=== PATIENT | female | born 1995 | race Caucasian/White ===

== ENCOUNTER 2020-12-23 18:10 | Emergency (ER) | payer OTHER ==
[~2020-12-23] VITALS: Ht 162.6 cm; Wt 107.0 kg
[2020-12-23] MEDS ORDERED: KETOROLAC 60MG/2ML VIAL IM ONE (19:15)
[2020-12-23] MEDS ORDERED: ACET-2708 MT (19:16)
[2020-12-23] MEDS ORDERED: CYCL25PO15 MT (19:16)
[2020-12-23 19:22] VITALS: BP 149/78
== END 2020-12-23 19:29 | disposition home or self-care (01) ==
LOC: ER 18:10
DX: M54.59 Other low back pain (principal)
CPT/HCPCS: 96372; 99283; J1885

== ENCOUNTER 2023-11-14 04:04 | Emergency (ER) | payer MEDICAID, OTHER ==
[~2023-11-14] VITALS: Ht 162.6 cm; Wt 140.0 kg
[~2023-11-14 04:04] MED LIST: ACET-2708 MT; CYCL25PO15 MT
[2023-11-14 04:08] VITALS: O2SAT 95
[2023-11-14] MEDS ORDERED: KETOROLAC 30MG/ML VIAL IM ONE (04:45)
[2023-11-14] MEDS ORDERED: KETOROLAC 30MG/ML VIAL IM NR (05:00)
[2023-11-14 06:12] LABS: BASOPHILS % 0.2 % (0.0-2.0); EOSINOPHILS % 0.1 % (0.0-5.0); HEMATOCRIT. 36.6 % (36.0-48.0); HEMOGLOBIN. 11.9 g/dL (12.0-16.0); LYMPHOCYTES % 12.3 % (20.0-50.0); MEAN CORPUSCULAR HEMOGLOBIN 26.6 pg (28.0-32.0); MEAN CORPUSCULAR HGB CONC 32.6 g/dL (31.0-37.0); MEAN CORPUSCULAR VOLUME 81.4 fL (81.0-99.0); MEAN PLATELET VOLUME 7.7 fl (7.4-10.4); NEUTROPHILS % 84.4 % (40.0-76.0); PLATELET 329 x1000/uL (130-400); RED BLOOD CELL COUNT 4.49 mill/uL (4.2-5.4); RED CELL DISTRIBUTION WIDTH 15.2 % (11.6-14.6)
[2023-11-14 06:21] LABS: CHLORIDE 106 mEq/L (98-107); POTASSIUM 3.8 mEq/L (3.5-5.1); SODIUM 139 mEq/L (136-145)
[2023-11-14 06:22] LABS: CALCIUM 9.6 mg/dL (8.7-10.4); CARBON DIOXIDE 27 mEq/L (21-32)
[2023-11-14 06:27] LABS: CREATININE 0.8 mg/dL (0.6-1.0); GLUCOSE 129 mg/dL (70-105); UREA NITROGEN BLOOD 14 mg/dL (9-23)
[2023-11-14 06:28] LABS: INR 0.9; PROTHROMBIN TIME 10.4 sec (9.6-11.0)
[2023-11-14 06:29] LABS: ALANINE AMINOTRANSFERASE 13 IU/L (10-49); ALBUMIN 4.8 g/dL (3.2-4.8); ASPARTATE AMINOTRANSFERASE 13 IU/L (<34); BILIRUBIN DIRECT 0.1 mg/dL (<=3.0); BILIRUBIN TOTAL 0.3 mg/dL (0.1-1.0); PROTEIN TOTAL 7.9 g/dL (6.0-8.3)
[2023-11-14] MEDS: ONDANSETRON HCL 4MG/2ML INJ IV ONE (06:51)
[2023-11-14] MEDS: KETOROLAC 30MG/ML VIAL IV NR (06:51)
[2023-11-14] MEDS: FAMOTIDINE 20MG/2ML VIAL IV ONE (06:51)
[2023-11-14] MEDS: SODIUM CHLORIDE 0.9% 1,000 ML IV ONE (06:51)
[2023-11-14 07:17] LABS: HCG SCREEN NEGATIVE
[2023-11-14 10:25] VITALS: BP 110/64; PULSE 79; RESP 20; TEMP 36.89184; O2SAT 99
== END 2023-11-14 10:26 | disposition home or self-care (01) ==
LOC: ER 04:04
DX: K80.20 Calculus of gallbladder without cholecystitis without obstruction (principal); Z98.890 Other specified postprocedural states
CPT/HCPCS: 80076; 80048; 84703; 83690; 85025; 85610; 36415; 76705; 96361; 96374; 96375; 99285; J3490; J1885; J2405; J7030; Z7610